=== PATIENT | male | born 1980 | race Asian ===

== ENCOUNTER 2021-04-03 10:16 | Emergency (ER) | payer OTHER, SELFPAY ==
--- NOTE | 2021-04-03 10:59 | ED.URI ---
HPI - URI/Sore Throat General Stated Complaint: cough Time Seen by Provider: 04/03/21 10:59 Source: patient and RN notes reviewed History of Present Illness HPI Narrative: Patient is a 41-year-old male who presents the urgent care with complaints of a 4-day history of cough. Patient states he has not used anything [id number] for his symptoms. Denies of fever, chills, nausea, vomiting. Denies of any known exposures to Covid. Patient states that he has been vaccinated. States that he got a little yellow capsules in the past which helped with the cough . No other acute complaints. No acute distress noted. Patient aware of the plan of care. Some parts of this dictation were generated by voice recognition software and may contain typographical and/or grammatical inaccuracies. Related Data Allergies Allergy/AdvReac Type Severity Reaction Status Date / Time No Known Allergies Allergy Verified 04/03/21 11:22 Review of Systems Review of Systems: CONSTITUTIONAL: Denies fever, chills, or sweats. EYES: Denies visual changes, redness, or discharge. ENT: Denies rhinorrhea, congestion, sore throat, or otalgia. CARDIOVASCULAR: Denies chest pain, palpitations, or edema. RESPIRATORY: Reports of cough without dyspnea GASTROINTESTINAL: Denies abdominal pain, nausea, vomiting, or diarrhea. GENITOURINARY: Denies dysuria or hematuria. SKIN: Denies rash or itching. MUSCULOSKELETAL: Denies back pain, joint pain, or myalgia. NEUROLOGIC: Denies headache, numbness, or weakness. All other systems reviewed are negative, except as documented in HPI. PMFSH Comments At the time of my signature, I reviewed and agree with the nursing past medical, surgical, social, and family history. There is no relevant family history pertinent to the patient complaint. Exam Narrative: GENERAL: This is a well-nourished, well-developed patient, in no apparent distress. HEAD: normocephalic, atraumatic. EYES: PERRL. Sclera clear/white. Vision is grossly intact. EARS: External ears normal, auditory canals clear and without drainage, TMs normal without perforation. Hearing grossly intact. NOSE: External nose normal with no obvious nasal discharge, nares without redness, no rhinorrhea. THROAT: Mucous membranes moist, posterior pharynx clear. Mild postnasal drainage NECK: Neck supple CARDIOVASCULAR: Regular rate and rhythm without murmurs, gallops, or rubs. RESPIRATORY: Clear to auscultation. Breath sounds equal bilaterally. No wheezes, rales, or rhonchi. SKIN: warm, intact with no suspicious lesions or rash, good texture and turgor. NEURO: awake, alert, and oriented to person, place and time. There were no obvious focal neurologic abnormalities. EXTREMITIES: No clubbing, cyanosis, or edema. Course Vital Signs Vital signs: Vital Signs Temperature 98.5 F 04/03/21 11:07 Pulse Rate 82 04/03/21 11:07 Respiratory Rate 18 04/03/21 11:07 Blood Pressure 106/78 04/03/21 11:07 Pulse Oximetry 100 04/03/21 11:07 Temperature 98.5 F 04/03/21 11:07 Pulse Rate 82 04/03/21 11:07 Respiratory Rate 18 04/03/21 11:07 Blood Pressure 106/78 04/03/21 11:07 Pulse Oximetry 100 04/03/21 11:07 Reviewed MDM - URI/Sore Throat MDM Narrative Medical decision making narrative: Advised patient to use the Tessalon Perles as needed for cough. May also use Mucinex without a pseudoephedrine [id number] as an expectorant. Increase water intake. Use Tylenol/ibuprofen as needed. If you develop any increase in symptoms associated with fever, shortness of breath or chest tightness?go to the emergency room and/or obtain a Covid test. Follow-up with your PCP within 2 to 5 days or for worsening symptoms or failure to improve. Patient deferred steroid. Differential Diagnosis Differential diagnosis: Likely upper respiratory infection, croup, otitis media, sinusitis, viral infection and bronchitis Critical Care Time Critical Care Time Critical Care Time: No
[2021-04-03 11:07] VITALS: BP 106/78; PULSE 82; RESP 18; TEMP 36.9; O2SAT 100
== END 2021-04-03 11:31 | disposition home or self-care (01) ==
PROVIDERS: Emergency Provider Nurse Practitioner Family
DX: R05.9 Cough, unspecified (principal)
CPT/HCPCS: 99203; G0463